=== PATIENT | male | born 1955 | race Caucasian/White ===

== ENCOUNTER 2017-07-18 14:33 | Inpatient (IN) | payer OTHER ==
[~2017-07-18] VITALS: Ht 160 cm; Wt 72.6 kg
[2017-07-18] MEDS ORDERED: ONDANSETRON 4 MG INJ IV STA (14:51)
[2017-07-18] MEDS ORDERED: FAMOTIDINE 20 MG INJ IV STA (14:51)
[2017-07-18] MEDS ORDERED: SOD CHLORIDE 0.9% 1,000 ML IV STA (14:51)
[2017-07-18 15:13] LABS: BASOPHIL # 0.1 10^3/ul (0.0-0.1); BASOPHILS % 0.3 % (0.0-2.0); EOSINOPHILS % 0.1 % (0.0-7.0); HEMATOCRIT 27.8 % (42.0-52.0); LYMPHOCYTES # 1.9 10^3/ul (0.8-2.9); LYMPHOCYTES % 12.9 % (15.0-51.0); MEAN CORPUSCULAR HEMOGLOBIN 29.8 pg (29.0-33.0); MEAN CORPUSCULAR HGB CONC 32.4 g/dl (32.0-37.0); MEAN CORPUSCULAR VOLUME 92.1 fl (82.0-101.0); MONOCYTE # 0.8 10^3/ul (0.3-0.9); MONOCYTES % 5.5 % (0.0-11.0); NEUTROPHIL # 11.7 10^3/ul (1.6-7.5); NEUTROPHILS % 80.7 % (39.0-77.0); PLATELET COUNT 492 10^3/UL (140-415); RED BLOOD COUNT 3.02 10^6/ul (4.70-6.10); RED CELL DISTRIBUTION WIDTH 14.1 % (11.5-14.5); WHITE BLOOD COUNT 14.6 10^3/ul (4.8-10.8)
[2017-07-18 15:33] LABS: ALANINE AMINOTRANSFERASE 34 IU/L (13-69); ALBUMIN 3.1 g/dl (3.3-4.9); ALBUMIN/GLOBULIN RATIO 1.03; ALKALINE PHOSPHATASE 71 IU/L (42-121); ANION GAP 11 (8-16); ASPARTATE AMINO TRANSFERASE 19 IU/L (15-46); BILIRUBIN,INDIRECT 0.1 mg/dl (0-1.1); BILIRUBIN,TOTAL 0.1 mg/dl (0.2-1.3); BLOOD UREA NITROGEN 24 mg/dl (7-20); CARBON DIOXIDE 25 mmol/L (21-31); CHLORIDE 105 mmol/L (97-110); CREATININE 0.79 mg/dl (0.61-1.24); GLUCOSE 312 mg/dl (70-220); POTASSIUM 4.2 mmol/L (3.5-5.1); SODIUM 137 mmol/L (135-144); TOTAL PROTEIN 6.1 g/dl (6.1-8.1)
[2017-07-18 15:45] LABS: TROPONIN-I < 0.012 ng/ml (0.00-0.12)
[2017-07-18 15:50] LABS: INR 1.18; PROTIME 15.1 Sec (12.2-14.2); PT RATIO 1.2
[2017-07-18 15:51] LABS: PARTIAL THROMBOPLASTIN TIME 26.1 Sec (25.0-35.0)
[2017-07-18] MEDS ORDERED: SOD CHLORIDE 0.9% 1,000 ML IV ONE (18:30)
[2017-07-18 18:46] LABS: HEMOGLOBIN 6.7 g/dl (14.0-18.0)
--- NOTE | 2017-07-18 21:13 | ERD ---
ER Documentation Chief Complaint Chief Complaint p hematemesisx1, syncopex2 HPI This 61 year-old male presents with epigastric abdominal pain as well as hematemesis. Vomited red blood 3 times. He has a history of bleeding Ramirez' s esophagus discharged from [facility] 1 week ago where he had cauterization as well as a biopsy which came back benign this morning. Small began spontaneously today. No fevers or chills. ROS All systems reviewed and are negative except as per history of present illness. Allergies Allergies: Coded Allergies: No Known Allergy (Unverified , 07/18/17) PMhx/Soc Hx Alcohol Use: No Hx Substance Use: Yes (marijuana) Hx Tobacco Use: No Smoking Status: Never smoker Physical Exam Vitals Vital Signs Date Time Temp Pulse Resp B/P Pulse Ox O2 Delivery O2 Flow Rate FiO2 07/18/17 19:00 84 17 109/58 100 Room Air 2.0 07/18/17 17:30 75 16 106/58 96 Room Air 07/18/17 16:34 91 16 103/54 98 Room Air 07/18/17 14:46 98.7 78 16 96/53 98 Physical Exam Const: [] Mild distress Head: Atraumatic Eyes: Normal Conjunctiva ENT: Normal External Ears, Nose and Mouth except for dried blood and lower chin. Neck: Full range of motion..~ No meningismus. Resp: Clear to auscultation bilaterally Cardio: Regular rate and rhythm, no murmurs Abd: Soft, mild epigastric tenderness non distended. Normal bowel sounds Skin: No petechiae or rashes Back: No midline or flank tenderness Ext: No cyanosis, or edema Neur: Awake and alert and oriented 3, no focal deficits Psych: Normal Mood and Affect Result Diagram: 07/18/17 1830 07/18/17 1450 Results 24 hrs Laboratory Tests Test 07/18/17 14:50 07/18/17 18:30 07/18/17 19:16 White Blood Count 14.610^3/ul Red Blood Count 3.0210^6/ul Hemoglobin 9.0g/dl 6.7g/dl Hematocrit 27.8% 21.0% Mean Corpuscular Volume 92.1fl Mean Corpuscular Hemoglobin 29.8pg Mean Corpuscular Hemoglobin Concent 32.4g/dl Red Cell Distribution Width 14.1% Platelet Count 89841^3/UL Mean Platelet Volume 9.0fl Neutrophils % 80.7% Lymphocytes % 12.9% Monocytes % 5.5% Eosinophils % 0.1% Basophils % 0.3% Nucleated Red Blood Cells % 0.0/100WBC Neutrophils # 11.710^3/ul Lymphocytes # 1.910^3/ul Monocytes # 0.810^3/ul Eosinophils # 0.010^3/ul Basophils # 0.110^3/ul Nucleated Red Blood Cells # 0.010^3/ul Prothrombin Time 15.1Sec Prothrombin Time Ratio 1.2 INR International Normalized Ratio 1.18 Activated Partial Thromboplast Time 26.1Sec Sodium Level 137mmol/L Potassium Level 4.2mmol/L Chloride Level 105mmol/L Carbon Dioxide Level 25mmol/L Anion Gap 11 Blood Urea Nitrogen 24mg/dl Creatinine 0.79mg/dl Glucose Level 312mg/dl Calcium Level 8.0mg/dl Total Bilirubin 0.1mg/dl Direct Bilirubin 0.00mg/dl Indirect Bilirubin 0.1mg/dl Aspartate Amino Transf (AST/SGOT) 19IU/L Alanine Aminotransferase (ALT/SGPT) 34IU/L Alkaline Phosphatase 71IU/L Troponin I < 0.012ng/ml Total Protein 6.1g/dl Albumin 3.1g/dl Globulin 3.00g/dl Albumin/Globulin Ratio 1.03 Bedside Glucose 189mg/dL Current Medications Medications (Trade) Dose Ordered Sig/Azucena Route PRN Reason Start Time Stop Time Status Last Admin Dose Admin Sodium Chloride (NS) 1,000 ml @ 1,000 mls/hr Q1H STAT IV 07/18/17 14:51 07/18/17 15:50 DC 07/18/17 15:14 Famotidine (Pepcid Iv) 20 mg ONCE STAT IV 07/18/17 14:51 07/18/17 14:56 DC 07/18/17 15:12 Ondansetron HCl 4 mg 4 mg ONCE STAT IV 07/18/17 14:51 07/18/17 14:56 DC 07/18/17 15:14 Sodium Chloride (NS) 1,000 ml @ 1,000 mls/hr Q1H ONCE IV 07/18/17 18:30 07/18/17 19:29 DC 07/18/17 18:47 Procedures/MDM Acute GI bleed and 54-year-old male. Symptomatic anemia with lightheadedness and near syncopal episodes. Vital signs remained stable except for borderline low blood pressure and a single episode of tachycardia. He was transfused 2 units in the ER. Zofran resolved his nausea and after several hours in the emergency room had no further episodes of vomiting. Feeling much better. Patient is a [facility] patient who had recent procedures done at [facility] for the same thing. I spoke with Dr. Conde, lead designer, of [facility].. He accepted transfer but then called back to say that the doctor who performed the procedure said the patient has coronary artery disease and he would not accept the patient because he thinks he is unstable for that reason. I believe this is very inappropriate and the best thing for the patient would be to see the same physician he was performed procedure which may have contributed to the patient' s condition, as well as have all of the imaging any other studies easily available. The patient will be admitted to panel physician Dr. Ulloa. Spoke with Dr. Aviles, does not see acute GI bleeds. Patient put out to Dr. Sosa. If he does not call back I will try Dr. Horner next. monitoring specialist interpretation: Normal sinus rhythm with occasional sinus tachycardia. No arrhythmias EKG interpretation: Sinus tachycardia rate of 105, normal axis, no ST or T-wave changes concerning for acute ischemia, normal EKG except for sinus tachycardia. Care time greater than 35 minutes: Treatment of severe anemia and acute GI bleeding, patient initially presented with low blood pressure and was very symptomatic with near syncope vomiting, careful fluid administration, chart review, blood product administration, multiple visits patient's bedside to reassess status, stabilization of condition, discussion with patient, patient's family, [facility] lead designer, admitting doctor. This does not include any billable procedures Departure Diagnosis: Primary Impression: Upper GI bleed Additional Impressions: Symptomatic anemia Severe anemia Near syncope Hyperglycemia due to type 1 diabetes mellitus Condition: Serious MARGARITA MIN DO Jul 18, 2017 21:13
[2017-07-18] MEDS ORDERED: ACETAMINOPHEN 325 MG TAB PO PRN ×2 (21:30)
[2017-07-18] MEDS ORDERED: ONDANSETRON 4 MG INJ IV PRN ×2 (21:30)
[2017-07-18] MEDS ORDERED: NACL 0.9% 3 ML SYG IV SCH (21:30)
[2017-07-18] MEDS ORDERED: DEXTROSE 5%-0.45% NACL 1,000 ML IV SCH (21:30)
--- NOTE | 2017-07-18 21:42 | HP ---
Date/Time of Note Date/Time of Note DATE: 07/18/17 TIME: 21:37 Assessment/Plan VTE Prophylaxis VTE Prophylaxis Intervention: SCD's Assessment/Plan Chief Complaint/Hosp Course Is a 7-year-old male being admitted to the telemetry floor for: #1 Upper GI bleed: Likely secondary to recent GI procedure for Ramirez's esophagus. At the current time will put patient on Protonix drip, will keep the patient n.p.o., H&H every 6 hours. Will transfuse 2 units of PRBCs at this current time. About 7.5. With goal of keeping the globin above 7.5. GI will be consulted. Of note patient had his procedure performed at [facility] [place] when he stably needs to be transferred over there. #2 Syncope: Likely secondary to abnormal hemodynamics from #1. At the current time as patient states that he did faint and lose loss of consciousness I will order a CAT scan of the brain without contrast. Will get the patient on bedrest. Once hemoglobin is more stabilized will need to perform orthostatics. Will also order carotid Doppler ultrasound. #3 Ramirez's esophagus: Patient recently had a procedure performed at [facility] on 07/08/17. Please see #1. #4 Diabetes mellitus: Patient currently has an insulin pump which at this point we will shut off. Will keep patient n.p.o. and insulin sliding scale. #5 Coronary artery disease: Patient has previous history of CABG. to confirm patient's home medications, however we will hold any of his antihypertensive or AV randy blocking agents secondary to #1 and #2 and risk of possible hypotension. #6 hyperlipidemia: Again we will need to obtain patient's medication list and resume patient's home medications when he is tolerating p.o. #7 DVT GI prophylaxis: SCDs will hold any chemical prophylaxis at this time secondary to #1, Protonix drip We will need to confirm with the patient his home medication list in the a.m. and follow-up on the CT of the brain. Further treatment strategy will be implemented as per the clinical course Problems: HPI/ROS Admit Date/Time Admit Date/Time Hx of Present Illness cc: vomitting blood This 61 year-old male presents with epigastric abdominal pain as well as hematemesis. Vomited red blood 3 times. He has a history of bleeding Ramirez' s esophagus discharged from [place] 1 week ago where he had a surgical procedure for his Ramirez's esophagus as well as a biopsy which came back benign this morning. The bleed began spontaneously today. No fevers or chills.He does report that he passed out at home a few times. Denies any trauma, but he did state he woke up on the ground after sitting in the chair. allergies: nkda meds: see mar ROS Const: As per HPI Eyes : No pain discharge or redness or change in visual acuity ENT: No pain, sore throat, congestion, congestion, dysphagia or discharge Respiratory: No shortness of breath, cough, sputum, wheezing, or pleuritic pain Cardiovascular: No chest pain, palpitation, PND, or edema GI : As per HPI Genitourinary: No dysuria, hematuria, flank pain , discharge or CVA tenderness Musculoskeletal: No joint pain, back pain, neck pain, restricted range of motion in neck or joints Skin: No rash, bruising or hives Neuro: As per HPI Endocrine: No polyuria, polydipsia, temperature intolerance Psych: No hallucination, depression, anxiety or suicidal ideation PMH/Family/Social Past Medical History DM type 1 on insulin pump, barrettes esophagus s/p sx, CAD s/p cabg, hld, Past Surgical History CABG, barretts esophagus sx, right shoulder sx, left nipple cyst removal, left hand trigger finger sx, Family History Significant Family History: heart disease (dad), cancer (mom: breast, dad: esophageal ca) Social History Alcohol Use: rarely Smoking Status: Never smoker Drug Use: marijuana Exam/Review of Systems Vital Signs Vitals Vital Signs Date Time Temp Pulse Resp B/P Pulse Ox O2 Delivery O2 Flow Rate FiO2 07/18/17 19:00 84 17 109/58 100 Room Air 2.0 07/18/17 14:46 98.7 Exam Exam General: is a well-developed male lying in bed, he does appear lethargic he also appears pale HEENT: Atraumatic, normocephalic. The pupils are equal, round and reactive. Extraocular motor are intact Neck: Supple with full range of motion. No rigidity or meningismus Chest: Nontender Lungs: Clear to auscultation bilaterally no crackles rales or wheezing Heart: Normal S1-S2, Regular rhythm and rate. No murmur, S3, or S4 Abdomen: Soft , nontender, nondistended , bowel sounds are present. No guarding no rebound tenderness , No masses or organomegaly. No costovertebral temporal angle mass Extremities: Normal to inspection, no edema no cyanosis Neurologic: Normal mental status, speech normal, cranial nerves II through XII are intact, motor and sensory are intact, no focal weakness Skin: Pale Additional Comments EKG interpretation: Normal sinus rhythm rate of 76, left anterior fascicular block, no ST or T-wave changes concerning for acute ischemia. As per ED physician augmentation Labs Result Diagram: 07/18/17 1830 07/18/17 1450 Medications Medications Current Medications Dextrose/Sodium Chloride (D5-1/2ns) 1,000 ml @ 75 mls/hr [id number] IV ; Start at 21:30; Status UNV Ondansetron HCl (Zofran Inj) 4 mg Q6H PRN IV NAUSEA AND/OR VOMITING; Start at 21:30; Status UNV Acetaminophen 650 mg 650 mg Q6H PRN PO PAIN LEVEL 1-3 OR FEVER; Start at 21:30; Status UNV Pantoprazole 80 mg/Sodium Chloride 100 ml @ 400 mls/hr ONCE ONCE IVPB ; Start 07/18/17 at 21:30; Stop 07/18/17 at 21:44; Status UNV Pantoprazole/ Sodium Chloride (Protonix Iv/NS) 100 ml @ 10 mls/hr Q10H IV ; Start 07/18/17 at 21:30; Status UNV Lorazepam (Ativan) 0.5 mg ONCE ONCE IV ; Start 07/18/17 at 22:00; Stop at 22:01; Status UNV FIDEL CARO Jul 18, 2017 21:42
[2017-07-18] MEDS ORDERED: PANTOPRAZOLE IV 80 MG in SOD CHLORIDE 0.9% 100 ML IVPB ONE (21:45)
[2017-07-18] MEDS: LORAZEPAM 2 MG INJ IV ONE (22:00)
[2017-07-18 22:04] VITALS: BP 121/62; PULSE 95; RESP 18
[2017-07-18 22:08] VITALS: PULSE 93
[2017-07-18 22:20] VITALS: Ht 160 cm; Wt 72.6 kg
[2017-07-18] MEDS ORDERED: GLUCOSE GEL 15 GRAM TUBE PO PRN ×2 (22:35)
[2017-07-18] MEDS ORDERED: GLUCOSE GEL 15 GRAM TUBE BUCCAL PRN (22:35)
[2017-07-18] MEDS ORDERED: DEXTROSE 50% 50 ML SYRINGE IV PRN ×2 (22:35)
[2017-07-18] MEDS ORDERED: GLUCAGON 1 MG INJ IM PRN (22:35)
[2017-07-18 23:07] VITALS: BP 113/53; PULSE 101; RESP 18
[2017-07-19] VITALS (14 sets, daily range): BP systolic 93–134; BP diastolic 52–73; PULSE 93–116; RESP 18–21
--- NOTE | 2017-07-19 00:41 | RADRPT ---
PROCEDURE: CT Brain without contrast. CLINICAL INDICATION: Syncope. Fall. TECHNIQUE: Serial axial computed tomographic images of the brain was performed on a multidetector CT scanner from the skull base through the vertex without contrast. CTDlvol = 45 mGy and DLP = 720 m Gy-cm. One of the following 3 dose reduction techniques were used: Automated exposure control; adju stment of the mA and/or kV according to patient size; or use of iterative reconstruction technique. COMPARISON: None. FINDINGS: There is no fracture. There is encephalomalacia in the anterior superior parasagittal left frontal lobe, . Sagittal left frontal lobe near the vertex. Parasagittal right frontal lobe near the vertex and in the posterior lateral superior right parietal lobe. There is age appropriate central and colt pheral atrophy. There is no midline shift. There is no acute stroke. There is moderate degree of supratentorial periventricular and subcortical white matter hypodensities. No acute intracranial he morrhage or abnormal extra-axial fluid collection. A probable mucous retention cysts in the bilater al maxillary sinus. There is opacification and sclerosis of the left mastoid air cells. IMPRESSION: 1. No fracture. 2. No acute intracranial hemorrhage or infarct. . 3. 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 4. Nonspecific white matter changes most commonly seen with small vessel disease. 5. Bilateral maxillary sinus mucous retention cyst. 6. Chronic-appearing left mastoid disease. RPTAT: HMVK .Salvador Koch MD, MD Date Time Electronically viewed and signed by .Salvador Koch MD, MD on 07/19/2017 00:41 .K/
[2017-07-19] MEDS: PANTOPRAZOLE IV 80 MG in SOD CHLORIDE 0.9% 100 ML IV SCH ×3 (01:18→18:00)
[2017-07-19] MEDS: INSULIN ASPART [NOVOLOG] 3 ML PEN SC SCH ×6 (01:40→21:39)
[2017-07-19] MEDS: ACCU-CHEK XX SCH (01:41)
[2017-07-19] MEDS: SOD CHLORIDE 0.9% 1,000 ML IV SCH ×3 (02:16→21:28)
[2017-07-19] MEDS: LORAZEPAM 2 MG INJ IV ONE (02:42)
[2017-07-19 05:37] LABS: HEMATOCRIT 20.9 % (42.0-52.0); HEMOGLOBIN 7.2 g/dl (14.0-18.0)
[2017-07-19 06:09] LABS: ALBUMIN/GLOBULIN RATIO 0.83; BILIRUBIN,INDIRECT 0.7 mg/dl (0-1.1); BILIRUBIN,TOTAL 0.7 mg/dl (0.2-1.3); CALCIUM 7.1 mg/dl (8.4-10.2); CHOL/HDL RATIO 3.6 RATIO; CREATININE 0.68 mg/dl (0.61-1.24); MAGNESIUM 1.6 mg/dl (1.7-2.5); POTASSIUM 4.5 mmol/L (3.5-5.1); TOTAL PROTEIN 4.4 g/dl (6.1-8.1)
[2017-07-19 06:38] LABS: THYROID STIMULATING HORMONE 0.746 MIU/L (0.465-4.680)
--- NOTE | 2017-07-19 09:32 | CONS ---
Date/Time of Note Date/Time of Note DATE: 07/19/17 TIME: 09:15 Assessment/Plan Assessment/Plan Chief Complaint/Hosp Course Summary Assessment and Plan: Assessment: Anemia- likely bleeding from bx site, as patient is on coagulant therapy Hematemesis-status post EGD with biopsy on anticoagulant therapy Syncope-secondary to anemia Plan: NPO EGD today Endoscopy - risks/benefits/alternatives/indications of procedure and sedation/ anesthesia discussed with patient who states understading and gives informed consent to proceed. PARQ held and questions were answered. Patient seen in collaboration with Dr. Sosa Chief Complaint/Reason for Visit: Hematemesis Anemia History of Present Illness: This is a pleasant 7-year-old male with past medical history of diabetes, retinopathy, CAD, CABG 2 vessels, GERD, Ramirez's esophagus, status post EGD with biopsy 1 week ago. Was taken to [facility] via ambulance for new onset hematemesis and syncope. Patient states he had an EGD with biopsy, which ended up being benign, he takes Plavix and aspirin daily. Patient was fine status post EGD however yesterday complained of hematemesis, melena, and stated he fainted at least 3 times. On initial work-up stool ob positive, hemoglobin was 9.0, it was reevaluated and dropped to 6.7, he received 2 units of blood and was rechecked this am showing a hemoglobin 7.2 he is now currently receiving the third unit of blood. At the time of examination, he denies any further episodes of hematemesis. He denies nausea, abd pain, diarrhea or constipation. With current presentation will plan to keep patient NPO, and plan for EGD today. Past Medical History: Insulin dependent diabetic Retinopathy CAD CABG 2 vessels, 3 years ago Ramirez's esophagus GERD Allergies: No known allergies PHYSICAL EXAMINATION: GENERAL: Well developed, alert & oriented x 3, in no acute distress SKIN: No lesions, no stigmata chronic liver disease, no evidence of bleeding diathesis LYMPHATIC: No palpable lymphadenopathy. HEAD: Normocephalic, atraumatic, no tenderness. EYES: Pupils equal reactive to light and accommodation, full extraocular movements, sclera clear, non-icteric, no discharge. EARS/NOSE AND THROAT: Ears normal, nose normal, oropharynx normal, oral membranes well hydrated without lesions. NECK: Supple, no masses CARDIOVASCULAR: Heart: Regular rate and rhythm. RESPIRATORY: Lungs clear to auscultation and percussion, no wheezing, no rubs GASTROINTESTINAL AND LIVER: Abdomen: Soft, non tenderness, non-distended, no hernias, no masses, no organomegaly, no ascites, no guarding, no rebound tenderness, normoactive bowel sounds. Rectal: Deferred. GENITOURINARY: Male genitalia within normal limits. Problems: Consultation Date/Type/Reason Admit Date/Time Date of Consultation: Jul 19, 2017 Type of Consultation: GI Reason for Consultation Hematemesis Constitutional: no complaints Eyes: no complaints ENT: no complaints Respiratory: no complaints Cardiovascular: no complaints Gastrointestinal: blood, nausea, No constipation, No decreased appetite, No flatus Genitourinary: no complaints Musculoskeletal: no complaints Skin: no complaints Past Medical History Medical History: coronary artery disease, diabetes, GERD, other (Ramirez's esophagus, retinopathy, basal cell) Past Surgical History Past Surgical Hx: coronary bypass surgery (x2 vessels 3 years ago), endoscopy ( EGD with biopsy 1 week ago, colonoscopy sometime this year) Family History Significant Family History: other (esophageal cancer i.e. cancer) Social History Alcohol Use: rarely Smoking Status: Never smoker Drug Use: marijuana Exam/Review of Systems Vital Signs Vitals Vital Signs Date Time Temp Pulse Resp B/P Pulse Ox O2 Delivery O2 Flow Rate FiO2 07/19/17 08:00 112 07/19/17 07:48 98.0 18 117/53 100 07/19/17 04:50 Nasal Cannula 3.0 Intake and Output 07/18/17 07/18/17 07/19/17 15:00 23:00 07:00 Intake Total 800 ml Balance 800 ml Results Result Diagram: 07/19/17 0518 07/19/17 0518 Results 24 hrs Laboratory Tests Test 07/18/17 14:50 07/18/17 18:30 07/18/17 19:16 07/18/17 22:45 White Blood Count 14.6 H Red Blood Count 3.02 L Hemoglobin 9.0 L 6.7 #*L Hematocrit 27.8 L 21.0 #L Mean Corpuscular Volume 92.1 Mean Corpuscular Hemoglobin 29.8 Mean Corpuscular Hemoglobin Concent 32.4 Red Cell Distribution Width 14.1 Platelet Count 492 H Mean Platelet Volume 9.0 Neutrophils % 80.7 H Lymphocytes % 12.9 L Monocytes % 5.5 Eosinophils % 0.1 Basophils % 0.3 Nucleated Red Blood Cells % 0.0 Neutrophils # 11.7 H Lymphocytes # 1.9 Monocytes # 0.8 Eosinophils # 0.0 Basophils # 0.1 Nucleated Red Blood Cells # 0.0 Prothrombin Time 15.1 H Prothrombin Time Ratio 1.2 INR International Normalized Ratio 1.18 Activated Partial Thromboplast Time 26.1 Sodium Level 137 Potassium Level 4.2 Chloride Level 105 Carbon Dioxide Level 25 Anion Gap 11 Blood Urea Nitrogen 24 H Creatinine 0.79 Glucose Level 312 H Calcium Level 8.0 L Total Bilirubin 0.1 L Direct Bilirubin 0.00 Indirect Bilirubin 0.1 Aspartate Amino Transf (AST/SGOT) 19 Alanine Aminotransferase (ALT/SGPT) 34 Alkaline Phosphatase 71 Troponin I < 0.012 Total Protein 6.1 Albumin 3.1 L Globulin 3.00 Albumin/Globulin Ratio 1.03 Bedside Glucose 189 213 Test 07/19/17 01:00 07/19/17 01:34 07/19/17 05:18 07/19/17 05:29 Stool Occult Blood POSITIVE Bedside Glucose 280 H 268 H Hemoglobin 7.2 L Hematocrit 20.9 L Sodium Level 137 Potassium Level 4.5 Chloride Level 109 Carbon Dioxide Level 24 Anion Gap 9 Blood Urea Nitrogen 22 H Creatinine 0.68 Glucose Level 239 H Hemoglobin A1c 6.9 H Calcium Level 7.1 L Magnesium Level 1.6 L Total Bilirubin 0.7 Direct Bilirubin 0.00 Indirect Bilirubin 0.7 Aspartate Amino Transf (AST/SGOT) 24 Alanine Aminotransferase (ALT/SGPT) 35 Alkaline Phosphatase 42 Total Protein 4.4 #L Albumin 2.0 #L Globulin 2.40 Albumin/Globulin Ratio 0.83 Triglycerides Level 81 Cholesterol Level 51 L LDL Cholesterol, Calculated 21 HDL Cholesterol 14 L Cholesterol/HDL Ratio 3.6 Thyroid Stimulating Hormone (TSH) 0.746 Test 07/19/17 05:46 07/19/17 08:53 Lab Scanned Report BLOOD TRANSFUSION Bedside Glucose 237 H Medications Medications Current Medications Ondansetron HCl (Zofran Inj) 4 mg Q6H PRN IV NAUSEA AND/OR VOMITING; Start at 21:30 Acetaminophen 650 mg 650 mg Q6H PRN PO PAIN LEVEL 1-3 OR FEVER; Start at 21:30 Pantoprazole/ Sodium Chloride (Protonix Iv/NS) 100 ml @ 10 mls/hr Q10H IV Last administered on 07/19/17 08:30; Admin Dose 10 MLS/HR; Start 07/18/17 at 22:00 Diagnostic Test (Pha) (Accu-Chek) 1 ea 02 XX ; Start 07/19/17 at 02:00 Insulin Aspart (Novolog Insulin Pen) NOVOLOG *MILD* ALGORI... Q4 SC Last administered on 07/19/17 09:05; Admin Dose 3 UNIT; Start 07/19/17 at 01:00 Miscellaneous Information 1 ea NOTE XX ; Start 07/18/17 at 22:35 Glucose (Glutose) 15 gm Q15M PRN PO DECREASED GLUCOSE; Start 07/18/17 at 22:35 Glucose (Glutose) 22.5 gm Q15M PRN PO DECREASED GLUCOSE; Start 07/18/17 at 22: 35 Dextrose (D50w Syringe) 25 ml Q15M PRN IV DECREASED GLUCOSE; Start 07/18/17 at 22:35 Dextrose (D50w Syringe) 50 ml Q15M PRN IV DECREASED GLUCOSE; Start 07/18/17 at 22:35 Glucagon (Glucagen) 1 mg Q15M PRN IM DECREASED GLUCOSE; Start 07/18/17 at 22: 35 Glucose 15 gm 15 gm Q15M PRN BUCCAL DECREASED GLUCOSE; Start 07/18/17 at 22:35 Sodium Chloride (NS) 1,000 ml @ 75 mls/hr [id number] IV Last administered on 02:16; Admin Dose 75 MLS/HR; Start 07/19/17 at 02:05 Copies To: CC: ISABELA SOSA MD, VICTORIA Jul 19, 2017 09:27
[2017-07-19 11:35] LABS: HEMATOCRIT 21.8 % (42.0-52.0); HEMOGLOBIN 7.5 g/dl (14.0-18.0)
--- NOTE | 2017-07-19 15:20 | PN ---
Date/Time of Note Date/Time of Note DATE: 07/19/17 TIME: 15:15 Assessment/Plan VTE Prophylaxis VTE Prophylaxis Intervention: SCD's Lines/Catheters IV C[facility]ter Type (from [facility]): Peripheral IV Urinary Cath still in place: No Assessment/Plan Chief Complaint/Hosp Course 61 yo male with h/o DMII, baretts who develop UGIB following endoscopy procedure - Endoscopy per GI - Monitor H/H - PPI - Transfuse PRN > 7 DMII with hyperglycemia: - basal/bolus insulin Dispo following EGD Problems: Subjective 24 Hr Interval Summary Free Text/Dictation No more bleeding since yesterday Feels well, awaiting endoscopy Exam/Review of Systems Vital Signs Vitals Vital Signs Date Time Temp Pulse Resp B/P Pulse Ox O2 Delivery O2 Flow Rate FiO2 07/19/17 12:00 93 07/19/17 11:49 98.3 18 116/73 100 07/19/17 04:50 Nasal Cannula 3.0 Intake and Output 07/18/17 07/18/17 07/19/17 15:00 23:00 07:00 Intake Total 800 ml Balance 800 ml Exam Constitutional: alert, oriented, well developed Psych: nl mood/affect, no complaints Head: atraumatic, normocephalic Eyes: EOMI, PERRL, nl conjunctiva, nl lids, nl sclera ENMT: nl external ears & nose, nl lips & teeth, nl nasal mucosa & septum Neck: non-tender, supple Respiratory: clear to auscultation, normal air movement Cardiovascular: nl pulses, regular rate and rhythm Gastrointestinal: nl liver, spleen, non-tender, soft Musculoskeletal: nl extremities to inspection, nl gait and stance Extremities: normal pulses Neurological: GRAPHIC COORDINATOR II-XII intact, nl mental status, nl speech, nl strength Skin: nl turgor, No rash or lesions Lymph: nl lymph nodes Results Result Diagram: 07/19/17 1048 07/19/17 0518 Results 24 hrs Laboratory Tests Test 07/18/17 18:30 07/18/17 19:16 07/18/17 22:45 07/19/17 01:00 Hemoglobin 6.7 #*L Hematocrit 21.0 #L Bedside Glucose 189 213 Stool Occult Blood POSITIVE Test 07/19/17 01:34 07/19/17 05:18 07/19/17 05:29 07/19/17 05:46 Bedside Glucose 280 H 268 H Hemoglobin 7.2 L Hematocrit 20.9 L Sodium Level 137 Potassium Level 4.5 Chloride Level 109 Carbon Dioxide Level 24 Anion Gap 9 Blood Urea Nitrogen 22 H Creatinine 0.68 Glucose Level 239 H Hemoglobin A1c 6.9 H Calcium Level 7.1 L Magnesium Level 1.6 L Total Bilirubin 0.7 Direct Bilirubin 0.00 Indirect Bilirubin 0.7 Aspartate Amino Transf (AST/SGOT) 24 Alanine Aminotransferase (ALT/SGPT) 35 Alkaline Phosphatase 42 Total Protein 4.4 #L Albumin 2.0 #L Globulin 2.40 Albumin/Globulin Ratio 0.83 Triglycerides Level 81 Cholesterol Level 51 L LDL Cholesterol, Calculated 21 HDL Cholesterol 14 L Cholesterol/HDL Ratio 3.6 Thyroid Stimulating Hormone (TSH) 0.746 Lab Scanned Report BLOOD TRANSFUSION Test 07/19/17 08:53 07/19/17 10:48 07/19/17 12:17 Bedside Glucose 237 H 263 H Hemoglobin 7.5 L Hematocrit 21.8 L Medications Medications Current Medications Ondansetron HCl (Zofran Inj) 4 mg Q6H PRN IV NAUSEA AND/OR VOMITING; Start at 21:30 Acetaminophen 650 mg 650 mg Q6H PRN PO PAIN LEVEL 1-3 OR FEVER; Start at 21:30 Pantoprazole/ Sodium Chloride (Protonix Iv/NS) 100 ml @ 10 mls/hr Q10H IV Last administered on 07/19/17 08:30; Admin Dose 10 MLS/HR; Start 07/18/17 at 22:00 Diagnostic Test (Pha) (Accu-Chek) 1 ea 02 XX ; Start 07/19/17 at 02:00 Insulin Aspart (Novolog Insulin Pen) NOVOLOG *MILD* ALGORI... Q4 SC Last administered on 07/19/17 12:26; Admin Dose 4 UNIT; Start 07/19/17 at 01:00 Miscellaneous Information 1 ea NOTE XX ; Start 07/18/17 at 22:35 Glucose (Glutose) 15 gm Q15M PRN PO DECREASED GLUCOSE; Start 07/18/17 at 22:35 Glucose (Glutose) 22.5 gm Q15M PRN PO DECREASED GLUCOSE; Start 07/18/17 at 22: 35 Dextrose (D50w Syringe) 25 ml Q15M PRN IV DECREASED GLUCOSE; Start 07/18/17 at 22:35 Dextrose (D50w Syringe) 50 ml Q15M PRN IV DECREASED GLUCOSE; Start 07/18/17 at 22:35 Glucagon (Glucagen) 1 mg Q15M PRN IM DECREASED GLUCOSE; Start 07/18/17 at 22: 35 Glucose 15 gm 15 gm Q15M PRN BUCCAL DECREASED GLUCOSE; Start 07/18/17 at 22:35 Sodium Chloride (NS) 1,000 ml @ 75 mls/hr [id number] IV Last administered on t 02:16; Admin Dose 75 MLS/HR; Start 07/19/17 at 02:05 ALIZA PATTON MD Jul 19, 2017 15:20
[2017-07-19] MEDS ORDERED: LIDOCAINE 2% (SDV) 5 ML INJ ONE (17:48)
[2017-07-19] MEDS ORDERED: PROPOFOL 40 ML ONE (17:48)
--- NOTE | 2017-07-19 18:01 | HPN ---
Date/Time of Note Date/Time of Note DATE: 07/19/17 TIME: 18:01 Interval H&P Admission Note Pt. seen H&P reviewed: No system changes ISABELA PUENTE MD Jul 19, 2017 18:01
--- NOTE | 2017-07-19 18:04 | OPPN ---
Date/Time of Note Date/Time of Note DATE: 07/19/17 TIME: 18:01 Proc Note GI Procedure Date 07/19/17 Indication: other (Hematemesis) Pre-procedure Diagnosis Hematemesis Post-procedure Diagnosis Impression: Distal esophageal ulceration at site of previous endoscopic resection No active bleeding, positive stigmata recent bleeding. Family adherent clot at area of ulceration. Hiatal hernia Plan: Continue PPI therapy Add Reglan Close monitor H&H transfuse as necessary Clear liquid diet .Esophagus Procedure Performed: Endoscopy Surgeon ISABELA PUENTE MD See signature line Forms Analyst none Anesthesia Type: MAC Anesthesiologist: NATALIA SINGH MD Tourniquet Time none EBL none Transfusion required none Biopsy 1: None Grafts/Implants none Tubes/Drains none Complication(s) none Disposition: home Procedure Description Preoperative Diagnosis: After informed consent, with the patient/relatives understanding the procedure, its indications, potential risks and complications, including but not limited to : allergic reaction, bleeding, perforation or infection, and after all pertinent questions were answered to the patients satisfaction, the patient/ relatives signed witnessed informed consent. Following this, premedication was administered slowly IV push under careful cardiovascular and respiratory monitoring with pulse oximetry, automatic blood pressure, and monitoring tech. Once the sedative effect was achieved the patient was place in the left lateral decubitus, the panendoscope was introduced and advanced under visual control. Careful examination of the upper gastrointestinal tract, both on insertion as well as withdrawal of the instrument disclosing the following findings: ESOPHAGUS: the mucosa of the entire esophagus was carefully examined and showed the following findings: There is an area of significant ulceration with therapeutic endoscopic procedure to remove Ramirez's esophagus tissue had been performed. The area shows stigmata recent bleeding with a family adherent clot that cannot be removed and therefore was left untouched. No active bleeding is present. Otherwise the mucosa appears within normal limits. There is no evidence of varices, neoplasm, or stricture. Small hiatal Hernia identified. STOMACH: Upon entrance to the stomach air was insufflated, the gastric doan distended normally. The mucosa of the fundus, body and antrum of the stomach was carefully examined both head-on and on retroflexion, and showed the following findings: []the mucosa appears within normal limits with no abnormalities. There is no evidence of gastritis, ulcers or neoplasm. PYLORUS: The pylorus was carefully examined and showed the following findings: []the pylorus appears patent and within normal limits, with no evidence of gastric outlet obstruction. DUODENUM: The duodenal mucosa was carefully examined in the duodenal bulb as well as the second portion of the duodenum and showed the following findings: []the mucosa appears unremarkable with no evidence of duodenitis, ulcer or neoplasm. Copies To: CC: ISABELA PUENTE MD, MORDO MD Jul 19, 2017 18:04
[2017-07-19] MEDS ORDERED: LORAZEPAM 2 MG INJ IV ONE (20:15)
[2017-07-19] MEDS ORDERED: protonix (20:44)
[2017-07-19] MEDS ORDERED: plavix (20:44)
[2017-07-19] MEDS ORDERED: humolog (20:44)
[2017-07-19] MEDS ORDERED: metropolol (20:44)
[2017-07-19] MEDS ORDERED: insu (20:44)
[2017-07-19] MEDS ORDERED: ecotrin (20:44)
[2017-07-19] MEDS ORDERED: nitrostat (20:44)
[2017-07-19] MEDS ORDERED: HYDROCODONE/APAP (5/325) TAB PO PRN (21:00)
[2017-07-19] MEDS ORDERED: INSULIN GLARGINE [LANtus] 3 ML PEN SC SCH (21:00)
[2017-07-19] MEDS: METOCLOPRAMIDE 10 MG INJ IV SCH (21:09)
[2017-07-19] MEDS ORDERED: INSULIN ASPART [NOVOLOG] 3 ML PEN SC ONE (21:47)
[2017-07-19 23:04] LABS: HEMATOCRIT 24.5 % (42.0-52.0); HEMOGLOBIN 8.4 g/dl (14.0-18.0)
[2017-07-20] VITALS (10 sets, daily range): BP systolic 91–104; BP diastolic 50–66; PULSE 91–109; RESP 16–20
[2017-07-20] MEDS: METOCLOPRAMIDE 10 MG INJ IV SCH ×4 (00:41→17:08)
[2017-07-20] MEDS: PANTOPRAZOLE IV 80 MG in SOD CHLORIDE 0.9% 100 ML IV SCH ×3 (00:42→12:42)
[2017-07-20] MEDS: INSULIN ASPART [NOVOLOG] 3 ML PEN SC SCH ×5 (01:29→17:14)
[2017-07-20 01:38] LABS: HEMATOCRIT 23.8 % (42.0-52.0); HEMOGLOBIN 8.3 g/dl (14.0-18.0)
[2017-07-20] MEDS: ACCU-CHEK XX SCH (02:00)
[2017-07-20] MEDS ORDERED: LORAZEPAM 2 MG INJ IV ONE (03:20)
[2017-07-20 06:21] LABS: ABNORMAL IP MESSAGE 1; BASOPHIL # 0.1 10^3/ul (0.0-0.1); BASOPHILS % 0.4 % (0.0-2.0); EOSINOPHILS # 0.1 10^3/ul (0.0-0.5); EOSINOPHILS % 0.8 % (0.0-7.0); HEMATOCRIT 23.1 % (42.0-52.0); HEMOGLOBIN 7.9 g/dl (14.0-18.0); LYMPHOCYTES # 4.4 10^3/ul (0.8-2.9); LYMPHOCYTES % 27.9 % (15.0-51.0); MEAN CORPUSCULAR HEMOGLOBIN 28.9 pg (29.0-33.0); MEAN CORPUSCULAR HGB CONC 34.2 g/dl (32.0-37.0); MEAN CORPUSCULAR VOLUME 84.6 fl (82.0-101.0); MEAN PLATELET VOLUME 9.2 fl (7.4-10.4); MONOCYTE # 1.8 10^3/ul (0.3-0.9); MONOCYTES % 11.1 % (0.0-11.0); NEUTROPHIL # 9.4 10^3/ul (1.6-7.5); NUCLEATED RED BLOOD CELLS # 0.1 10^3/ul (0.0-0.0); NUCLEATED RED BLOOD CELLS% 0.4 /100WBC (0.0-0.0); PLATELET COUNT 233 10^3/UL (140-415); POSITIVE DIFF @See below; RED BLOOD COUNT 2.73 10^6/ul (4.70-6.10); RED CELL DISTRIBUTION WIDTH 15.9 % (11.5-14.5); WHITE BLOOD COUNT 15.9 10^3/ul (4.8-10.8)
[2017-07-20 07:08] LABS: ALBUMIN 2.5 g/dl (3.3-4.9); ALBUMIN/GLOBULIN RATIO 1.13; BILIRUBIN,INDIRECT 0.3 mg/dl (0-1.1); BILIRUBIN,TOTAL 0.3 mg/dl (0.2-1.3); CALCIUM 7.2 mg/dl (8.4-10.2); CREATININE 0.64 mg/dl (0.61-1.24); POTASSIUM 3.7 mmol/L (3.5-5.1); TOTAL PROTEIN 4.7 g/dl (6.1-8.1)
[2017-07-20] MEDS: SOD CHLORIDE 0.9% 1,000 ML IV SCH ×2 (08:44→12:43)
--- NOTE | 2017-07-20 10:24 | PN ---
Date/Time of Note Date/Time of Note DATE: 07/20/17 TIME: 10:19 Assessment/Plan VTE Prophylaxis VTE Prophylaxis Intervention: ambulation Lines/Catheters [facility] IV Urinary Cath still in place: No Assessment/Plan Chief Complaint/Hosp Course Assessment: Assessment: Hematemesis post therapeutic intervention for Ramirez's esophagus EGD 07/19/2017 Distal esophageal ulceration at site of previous endoscopic resection No active bleeding, positive stigmata recent bleeding. No therapeutic intervention undertaken Family adherent clot at area of ulceration. Hiatal hernia Anemia- likely bleeding from bx site, as patient is on coagulant therapy History of Ramirez's esophagus with dysplasia, by history Syncope-secondary to anemia Plan: Advance diet as tolerated Continue aggressive PPI therapy Monitor H&H if stable over the next 24 hours consider outpatient management Subjective: Course reviewed with nursing staff Patient interviewed and examined All labs, imaging and other results reviewed The patient reports no further episodes of bleeding i.e. 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 Peripheral pulses present within normal limits, no cyanosis, clubbing or edemas. No pulsatile abdominal mass Respiratory: Lungs clear to auscultation and percussion, no wheezing, no rubs Gastrointestinal and Liver: Abdomen: Soft, non tenderness, not distended, no hernias, no masses, no organomegaly, no ascites, no guarding, no rebound tenderness, normoactive bowel sounds. Extremities: No cyanosis, clubbing, or edema. [Neurologic: Cranial nerves II-XII intact, motor within normal limits, sensory within normal limits. Reflexes within normal limits.] [Psychiatric: Anxious. Otherwise alert and oriented x3, mood/affect/judgment adequate] Diagnostic Studies: Available data and images were reviewed personally. See reports. Significant results and findings are addressed here or in the assessment and plan. Problems: Exam/Review of Systems Vital Signs Vitals Vital Signs Date Time Temp Pulse Resp B/P Pulse Ox O2 Delivery O2 Flow Rate FiO2 07/20/17 08:32 108 07/20/17 08:18 Room Air 07/20/17 04:00 97.6 16 94/54 95 07/19/17 16:00 3.0 Intake and Output 07/19/17 07/19/17 07/20/17 15:00 23:00 07:00 Intake Total 1205 ml Balance 1205 ml Results Result Diagram: 07/20/17 0601 07/20/17 0601 Results 24 hrs Laboratory Tests Test 07/19/17 10:48 07/19/17 12:17 07/19/17 18:02 07/19/17 21:06 Hemoglobin 7.5 L Hematocrit 21.8 L Bedside Glucose 263 H 288 H 348 H Test 07/19/17 22:17 07/20/17 00:51 07/20/17 01:14 07/20/17 06:01 Hemoglobin 8.4 L 8.3 L 7.9 L Hematocrit 24.5 L 23.8 L 23.1 L Bedside Glucose 202 White Blood Count 15.9 H Red Blood Count 2.73 L Mean Corpuscular Volume 84.6 Mean Corpuscular Hemoglobin 28.9 L Mean Corpuscular Hemoglobin Concent 34.2 Red Cell Distribution Width 15.9 H Platelet Count 233 # Mean Platelet Volume 9.2 Neutrophils % 59.0 Lymphocytes % 27.9 Monocytes % 11.1 H Eosinophils % 0.8 Basophils % 0.4 Nucleated Red Blood Cells % 0.4 H Neutrophils # 9.4 H Lymphocytes # 4.4 H Monocytes # 1.8 H Eosinophils # 0.1 Basophils # 0.1 Nucleated Red Blood Cells # 0.1 H Sodium Level 139 Potassium Level 3.7 Chloride Level 109 Carbon Dioxide Level 23 Anion Gap 11 Blood Urea Nitrogen 14 Creatinine 0.64 Glucose Level 182 Calcium Level 7.2 L Total Bilirubin 0.3 Direct Bilirubin 0.00 Indirect Bilirubin 0.3 Aspartate Amino Transf (AST/SGOT) 221 #H Alanine Aminotransferase (ALT/SGPT) 55 Alkaline Phosphatase 50 Total Protein 4.7 L Albumin 2.5 L Globulin 2.20 Albumin/Globulin Ratio 1.13 Test 07/20/17 06:17 07/20/17 06:46 07/20/17 08:11 Bedside Glucose 215 189 Lab Scanned Report BLOOD TRANSFUSION Medications Medications Current Medications Ondansetron HCl (Zofran Inj) 4 mg Q6H PRN IV NAUSEA AND/OR VOMITING; Start at 21:30 Acetaminophen 650 mg 650 mg Q6H PRN PO PAIN LEVEL 1-3 OR FEVER; Start at 21:30 Pantoprazole/ Sodium Chloride (Protonix Iv/NS) 100 ml @ 10 mls/hr Q10H IV Last administered on 07/20/17 00:42; Admin Dose 10 MLS/HR; Start 07/18/17 at 22:00 Diagnostic Test (Pha) (Accu-Chek) 1 ea 02 XX ; Start 07/19/17 at 02:00 Miscellaneous Information 1 ea NOTE XX ; Start 07/18/17 at 22:35 Glucose (Glutose) 15 gm Q15M PRN PO DECREASED GLUCOSE; Start 07/18/17 at 22:35 Glucose (Glutose) 22.5 gm Q15M PRN PO DECREASED GLUCOSE; Start 07/18/17 at 22: 35 Dextrose (D50w Syringe) 25 ml Q15M PRN IV DECREASED GLUCOSE; Start 07/18/17 at 22:35 Dextrose (D50w Syringe) 50 ml Q15M PRN IV DECREASED GLUCOSE; Start 07/18/17 at 22:35 Glucagon (Glucagen) 1 mg Q15M PRN IM DECREASED GLUCOSE; Start 07/18/17 at 22: 35 Glucose 15 gm 15 gm Q15M PRN BUCCAL DECREASED GLUCOSE; Start 07/18/17 at 22:35 Sodium Chloride (NS) 1,000 ml @ 75 mls/hr [id number] IV Last administered on 21:28; Admin Dose 75 MLS/HR; Start 07/19/17 at 02:05 Insulin Glargine (Lantus) 15 unit QHS SC ; Start 07/19/17 at 21:00 Metoclopramide HCl (Reglan) 10 mg Q6 IV Last administered on 07/20/17 06:18; Admin Dose 10 MG; Start 07/19/17 at 18:30 Acetaminophen/ Hydrocodone Bitart ([place] (5/325)) 1 tab Q6H PRN PO PAIN LEVEL 4 -6 Last administered on 07/19/17 21:35; Admin Dose 1 TAB; Start 07/19/17 at 21:00; Stop 07/20/17 at 20:59 Insulin Aspart (Novolog Insulin Pen) NOVOLOG *MODERATE* ALGORI... Q4 SC Last administered on 07/20/17 08:13; Admin Dose 4 UNIT; Start 07/20/17 at 01:00 ISABELA PUENTE MD Jul 20, 2017 10:24
[2017-07-20 12:38] LABS: HEMATOCRIT 21.7 % (42.0-52.0); HEMOGLOBIN 7.5 g/dl (14.0-18.0)
--- NOTE | 2017-07-20 16:48 | DS ---
Date/Time of Note Date/Time of Note DATE: 07/20/17 TIME: 16:46 Discharge Summary Admission/Discharge Info Admit Date/Time Jul 18, 2017 at 21:15 Discharge Date/Time Discharge Diagnosis Upper GI bleed Patient Condition: Fair Hx of Present Illness cc: vomitting blood This 61 year-old male presents with epigastric abdominal pain as well as hematemesis. Vomited red blood 3 times. He has a history of bleeding Ramirez' s esophagus discharged from [facility] 1 week ago where he had a surgical procedure for his Ramirez's esophagus as well as a biopsy which came back benign this morning. The bleed began spontaneously today. No fevers or chills.He does report that he passed out at home a few times. Denies any trauma, but he did state he woke up on the ground after sitting in the chair. allergies: nkda meds: see [facility] Hospital Course Assessment: Assessment: Hematemesis post therapeutic intervention for Ramirez's esophagus EGD 07/19/2017 Distal esophageal ulceration at site of previous endoscopic resection No active bleeding, positive stigmata recent bleeding. No therapeutic intervention undertaken Family adherent clot at area of ulceration. Hiatal hernia Anemia- likely bleeding from bx site, as patient is on coagulant therapy History of Ramirez's esophagus with dysplasia, by history Syncope-secondary to anemia Plan: Advance diet as tolerated Continue aggressive PPI therapy Monitor H&H if stable over the next 24 hours consider outpatient management Subjective: Course reviewed with nursing staff Patient interviewed and examined All labs, imaging and other results reviewed The patient reports no further episodes of bleeding i.e. 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 Peripheral pulses present within normal limits, no cyanosis, clubbing or edemas. No pulsatile abdominal mass Respiratory: Lungs clear to auscultation and percussion, no wheezing, no rubs Gastrointestinal and Liver: Abdomen: Soft, non tenderness, not distended, no hernias, no masses, no organomegaly, no ascites, no guarding, no rebound tenderness, normoactive bowel sounds. Extremities: No cyanosis, clubbing, or edema. [Neurologic: Cranial nerves II-XII intact, motor within normal limits, sensory within normal limits. Reflexes within normal limits.] [Psychiatric: Anxious. Otherwise alert and oriented x3, mood/affect/judgment adequate] Diagnostic Studies: Available data and images were reviewed personally. See reports. Significant results and findings are addressed here or in the assessment and plan. Patient underwent endoscopy showing Distal esophageal ulceration at site of previous endoscopic resection No active bleeding, positive stigmata recent bleeding. Family adherent clot at area of ulceration. Hiatal hernia He was transfused 2 units PRBCs. He continued to have mild melena but no hematemasis. Hgb today is 7.5 from 8.4 yesterday. He was continued on IV PPI. Continued on home insuilin dosing. Needs to be monitored for continued bleeding for a day or two per GI consultation. Home Meds Reported Medications [nitrostat] No Conflict Check 07/19/17 [humolog] No Conflict Check 07/19/17 [insu] No Conflict Check 07/19/17 [ecotrin] No Conflict Check 07/19/17 [protonix] No Conflict Check 07/19/17 [metropolol] No Conflict Check 07/19/17 [plavix] No Conflict Check 07/19/17 Primary Care Provider Not On Staff Doctor Pending Labs Laboratory Tests Test 07/19/17 18:02 07/19/17 21:06 07/19/17 22:17 07/20/17 00:51 Bedside Glucose 288mg/dL (70-220) 348mg/dL (70-220) 202mg/dL (70-220) Hemoglobin 8.4g/dl (14.0-18.0) Hematocrit 24.5% (42.0-52.0) Test 07/20/17 01:14 07/20/17 06:01 07/20/17 06:17 07/20/17 06:46 Hemoglobin 8.3g/dl (14.0-18.0) 7.9g/dl (14.0-18.0) Hematocrit 23.8% (42.0-52.0) 23.1% (42.0-52.0) White Blood Count 15.910^3/ul (4.8-10.8) Red Blood Count 2.7310^6/ul (4.70-6.10) Mean Corpuscular Volume 84.6fl (82.0-101.0) Mean Corpuscular Hemoglobin 28.9pg (29.0-33.0) Mean Corpuscular Hemoglobin Concent 34.2g/dl (32.0-37.0) Red Cell Distribution Width 15.9% (11.5-14.5) Platelet Count 31244^3/UL (140-415) Mean Platelet Volume 9.2fl (7.4-10.4) Neutrophils % 59.0% (39.0-77.0) Lymphocytes % 27.9% (15.0-51.0) Monocytes % 11.1% (0.0-11.0) Eosinophils % 0.8% (0.0-7.0) Basophils % 0.4% (0.0-2.0) Nucleated Red Blood Cells % 0.4/100WBC (0.0-0.0) Neutrophils # 9.410^3/ul (1.6-7.5) Lymphocytes # 4.410^3/ul (0.8-2.9) Monocytes # 1.810^3/ul (0.3-0.9) Eosinophils # 0.110^3/ul (0.0-0.5) Basophils # 0.110^3/ul (0.0-0.1) Nucleated Red Blood Cells # 0.110^3/ul (0.0-0.0) Sodium Level 139mmol/L (135-144) Potassium Level 3.7mmol/L (3.5-5.1) Chloride Level 109mmol/L (97-110) Carbon Dioxide Level 23mmol/L (21-31) Anion Gap 11 (8-16) Blood Urea Nitrogen 14mg/dl (7-20) Creatinine 0.64mg/dl (0.61-1.24) Glucose Level 182mg/dl (70-220) Calcium Level 7.2mg/dl (8.4-10.2) Total Bilirubin 0.3mg/dl (0.2-1.3) Direct Bilirubin 0.00mg/dl (0.00-0.20) Indirect Bilirubin 0.3mg/dl (0-1.1) Aspartate Amino Transf (AST/SGOT) 221IU/L (15-46) Alanine Aminotransferase (ALT/SGPT) 55IU/L (13-69) Alkaline Phosphatase 50IU/L (42-121) Total Protein 4.7g/dl (6.1-8.1) Albumin 2.5g/dl (3.3-4.9) Globulin 2.20g/dl (1.3-3.2) Albumin/Globulin Ratio 1.13 Bedside Glucose 215mg/dL (70-220) Lab Scanned Report BLOOD [id number] Test 07/20/17 08:11 07/20/17 10:22 07/20/17 12:03 Bedside Glucose 189mg/dL (70-220) 226mg/dL (70-220) 195mg/dL (70-220) Hemoglobin 7.5g/dl (14.0-18.0) Hematocrit 21.7% (42.0-52.0) ALIZA PATTON MD Jul 20, 2017 16:48
[2017-07-20 17:58] LABS: HEMATOCRIT 21.7 % (42.0-52.0); HEMOGLOBIN 7.4 g/dl (14.0-18.0)
== END 2017-07-20 20:30 | disposition short-term general hospital (02) | DRG 378 ==
LOC: E/R 14:33 → TEL 21:15
PROVIDERS: ADMIT Family Medicine; ATTEND Family Medicine
PROC: 0DJ08ZZ Inspection of Upper Intestinal Tract, Via Natural or Artificial Opening Endoscopic (ICD-10-PCS; principal; 2017-07-19 22:00)
DX: K92.2 Gastrointestinal hemorrhage, unspecified (principal); K22.10 Ulcer of esophagus without bleeding; E10.65 Type 1 diabetes mellitus with hyperglycemia; I10 Essential (primary) hypertension; K44.9 Diaphragmatic hernia without obstruction or gangrene; R55 Syncope and collapse; D64.9 Anemia, unspecified; E66.01 Morbid (severe) obesity due to excess calories; Z68.28 Body mass index [BMI] 28.0-28.9, adult; I25.10 Atherosclerotic heart disease of native coronary artery without angina pectoris; I25.2 Old myocardial infarction; Z95.1 Presence of aortocoronary bypass graft
CPT/HCPCS: 36415; 36430; 70450; 80053; 80061; 82270; 82962; 83036; 83735; 84443; 84484; 85014; 85018; 85025; 85610; 85730; 86850; 86900; 86901; 86920; 93005; 96374; 96375; C9113; J1815; J2060; J2405; J2765; J7030; J7042; P9016